=== PATIENT | male | born 1985 | race American Indian/Alaskan Native ===

== ENCOUNTER 2019-09-19 09:18 | Emergency (ER) | payer OTHER ==
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
[2019-09-19 11:29] LABS: Bilirubin,Urine NEG (Negative); Blood,Urine NEG (Negative); Color,Urine Colorless (Yellow); Protein,Urine <15 mg/dL mg/dL (Negative); RBC,Urine < 1.0 /HPF (0.0-6.0); Urobilinogen,Urine < 2.0 mg/dL (<2.0)
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
[2019-09-19 11:38] LABS: WBC,Urine < 1.0 /HPF (0.0-6.0)
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
[2019-09-19 14:04] VITALS: BP 120/57
== END 2019-09-19 14:03 | disposition home or self-care (01) ==
LOC: ED 09:18
DX: R51 Headache (principal); R42 Dizziness and giddiness; M54.9 Dorsalgia, unspecified; J45.909 Unspecified asthma, uncomplicated; Z98.890 Other specified postprocedural states; V49.49XA Driver injured in collision with other motor vehicles in traffic accident, initial encounter; Y93.89 Activity, other specified; Y92.410 Unspecified street and highway as the place of occurrence of the external cause; Y99.8 Other external cause status
CPT/HCPCS: 70450; 72040; 72070; 81001